=== PATIENT | female | born 1950 | race Two or more races ===

== ENCOUNTER 2017-04-19 10:09 | Emergency (ER) | payer MEDICAID, MEDICARE, OTHER ==
[~2017-04-19] VITALS: Ht 162.6 cm; Wt 74.8 kg
[2017-04-19 10:24] VITALS: BP 190/83
[2017-04-19] MEDS ORDERED: KETOROLAC TROMETH 60MG/2ML VIAL IM ONE (12:15)
== END 2017-04-19 13:34 | disposition home or self-care (01) ==
LOC: ER 10:09
DX: S16.1XXA Strain of muscle, fascia and tendon at neck level, initial encounter (principal); S39.012A Strain of muscle, fascia and tendon of lower back, initial encounter; E11.9 Type 2 diabetes mellitus without complications; V43.52XA Car driver injured in collision with other type car in traffic accident, initial encounter; Y93.89 Activity, other specified; Y99.8 Other external cause status; Y92.488 Other paved roadways as the place of occurrence of the external cause
CPT/HCPCS: 72040; 72100; 96372; 99284; J1885

== ENCOUNTER 2017-04-20 09:19 | Emergency (ER) | payer OTHER ==
[~2017-04-20] VITALS: Ht 162.6 cm; Wt 77.1 kg
[2017-04-20 09:29] VITALS: BP 157/74
== END 2017-04-20 11:52 | disposition home or self-care (01) ==
LOC: ER 09:19
DX: M48.06 Spinal stenosis, lumbar region (principal); E11.9 Type 2 diabetes mellitus without complications; V48.5XXD Car driver injured in noncollision transport accident in traffic accident, subsequent encounter
CPT/HCPCS: 72131

== ENCOUNTER 2018-03-17 21:33 | Emergency (ER) | payer OTHER ==
[~2018-03-17] VITALS: Ht 162.6 cm; Wt 73.9 kg
[~2018-03-17 21:33] MED LIST: ALL300T GT; ATOR20TA50 PO; BUPR200T PO; FER325T PO; GABA100C9 PO; IBUP800T24 PO; LEV50T PO; LOSA50TA6 PO; METF-370 PO; METH2.5T3 PO; OMEP20TA PO; PERCOT PO; PRE5T PO; TEMA30CA PO; TRAM50TA2 PO; TRAZ100T2 PO; [UNRECOGNIZED DRUG - CODE] PO
[2018-03-17 22:27] LABS: Basophils # (auto) 0 uL; Basophils % (auto) 0.5 % (0.0-2.0); Eosinophils # (auto) 0 uL; Hematocrit 34.3 % (36.0-46.0); Lymphocytes # (auto) 0.5 uL; Lymphocytes % (auto) 6.3 % (10.0-50.0); Mean Corpuscular Hemoglobin 30.7 pg (28.0-32.0); Mean Corpuscular Hgb Conc. 32.2 g/dL (32.0-36.0); Mean Corpuscular Volume 95.6 fL (80.0-100.0); Monocytes # (auto) 0.3 uL; Monocytes % (auto) 4.4 % (0.0-12.0); Neutrophils # (auto) 6.5 uL; Neutrophils % (auto) 88.8 % (37.0-80.0); Platelet Count (auto) 221 10^3/uL (140-450); Red Blood Cells 3.58 10^6/uL (4.0-5.20); Red Cell Distribution Width 17.2 % (11.8-14.3); White Blood Cell 7.3 10^3/uL (4.4-10.8)
[2018-03-17 22:41] LABS: Albumin 2.4 g/dL (3.4-5.0); BUN/Creatinine Ratio 8.5; Calcium 7.5 mg/dL (8.5-10.1); Magnesium 1.7 mg/dL (1.6-2.6); Potassium 3.8 mmol/L (3.5-5.1)
[2018-03-17 22:46] LABS: Bilirubin, Total 0.5 mg/dL (0.2-1.0); Total Protein 6.5 g/dL (6.4-8.2)
[2018-03-18] MEDS ORDERED: LORazepam 2MG/ML-1ML VIAL IV ONE (00:30)
[2018-03-18] MEDS ORDERED: SODIUM CHLORIDE 0.9% 1,000 ML IV ONE (01:00)
[2018-03-18] MEDS ORDERED: traZODone HCL 50 MG TAB PO ONE (02:30)
[2018-03-18 02:54] LABS: Urine Bacteria FEW /hpf (None Seen); Urine Blood 1+ /uL (Negative); Urine Hyaline Cast FEW /lpf (0 - 2); Urine Mucus FEW (None Seen); Urine Specific Gravity 1.014 (1.001-1.035); Urine WBC 49 /hpf (0 - 5)
[2018-03-18 03:24] VITALS: BP 139/62
[2018-03-18] MEDS ORDERED: CEFTRIAXONE SODIUM 2 GM in D5W 5% 50 ML IV ONE (03:45)
[2018-03-18] MEDS ORDERED: cefTRIAXone 1GM/10ml IVPUSH 20 ML IV ONE (03:49)
== END 2018-03-18 04:46 | disposition home or self-care (01) ==
LOC: ER 21:33 → EDBD 21:33 → ER 03-18 04:44
DX: N39.0 Urinary tract infection, site not specified (principal); R53.1 Weakness; E11.22 Type 2 diabetes mellitus with diabetic chronic kidney disease; I13.0 Hypertensive heart and chronic kidney disease with heart failure and stage 1 through stage 4 chronic kidney disease, or unspecified chronic kidney disease; N18.9 Chronic kidney disease, unspecified; E66.9 Obesity, unspecified; Z79.4 Long term (current) use of insulin; Z68.28 Body mass index [BMI] 28.0-28.9, adult
CPT/HCPCS: 36415; 71045; 80053; 81001; 83605; 83735; 83880; 84484; 85025; 87040; 93005; 96374; 99285; J0696; J7030; J7060

== ENCOUNTER 2020-08-07 12:31 | Inpatient (IN) | payer OTHER ==
[~2020-08-07] VITALS: Ht 165.1 cm; Wt 89.4 kg
[~2020-08-07 12:31] MED LIST changes: +LOSA-69 PO; -LOSA50TA6 PO; +METH2.5T PO; -METH2.5T3 PO; -TRAZ100T2 PO; +TRAZ100T3 PO
[2020-08-07 16:41] LABS: Basophils # (auto) 0 10 ^3/uL (0-0.2); Basophils % (auto) 0.1 % (0.0-2.0); Eosinophils # (auto) 0 10 ^3/uL (0-0.8); Hematocrit 43.9 % (36.0-46.0); Hemoglobin 14.1 g/dL (12.2-16.2); Lymphocytes # (auto) 0.5 10 ^3/uL (0.4-5.4); Lymphocytes % (auto) 3.3 % (10.0-50.0); Mean Corpuscular Hemoglobin 30.5 pg (28.0-32.0); Mean Corpuscular Volume 95.1 fL (80.0-100.0); Monocytes # (auto) 0.2 10 ^3/uL (0-1.3); Monocytes % (auto) 1.2 % (0.0-12.0); Neutrophils # (auto) 13.9 10 ^3/uL (1.6-8.6); Neutrophils % (auto) 95.4 % (37.0-80.0); Platelet Count (auto) 294 10^3/uL (140-450); Red Blood Cells 4.61 10^6/uL (4.0-5.20); Red Cell Distribution Width 17.4 % (11.8-14.3); White Blood Cell 14.6 10^3/uL (4.4-10.8)
[2020-08-07 16:58] LABS: Albumin 2.1 g/dL (3.4-5.0); Calcium 6.6 mg/dL (8.5-10.1); Potassium 3.4 mmol/L (3.5-5.1)
[2020-08-07 17:02] LABS: Lactic Acid w/Reflex 4.3 mmol/L (0.4-2.0)
[2020-08-07 17:05] LABS: BUN/Creatinine Ratio 19.5; Bilirubin, Total 0.4 mg/dL (0.2-1.0); Total Protein 5.6 g/dL (6.4-8.2)
[2020-08-07] MEDS ORDERED: SODIUM CHLORIDE 0.9% 1,000 ML IV ONE (18:45)
[2020-08-07] MEDS ORDERED: DexAMETHasone SOD PHOS 10MG/1ML VIAL INJ IV ONE (18:45)
[2020-08-07] MEDS ORDERED: DOXYCYCLINE 100MG/250ML 250 ML IV ONE (18:45)
[2020-08-07] MEDS ORDERED: AZITHROMYCIN 500MG/ 250ML 250 ML IV ONE (19:00)
[2020-08-08] MEDS ORDERED: ACETAMINOPHEN 500 MG TAB PO PRN (01:45)
[2020-08-08] MEDS ORDERED: POTASSIUM CHL 20MEQ/100ML 100 ML IV ONE (01:45)
[2020-08-08] MEDS ORDERED: DEXTROSE (50%) 50ML SYRG IV PRN (01:45)
[2020-08-08] MEDS ORDERED: CALCIUM GLUC 4.65meq/50ml D5AE 50 ML IV ONE (01:45)
[2020-08-08] MEDS ORDERED: DOCUSATE SOD 100 MG CAP PO PRN (01:45)
[2020-08-08] MEDS ORDERED: NITROGLYCERIN 0.4 MG SL TAB SL PRN (01:45)
[2020-08-08] MEDS ORDERED: ALBUTEROL SULF HFA 90MCG INH 200DOSE IN PRN (01:45)
[2020-08-08] MEDS ORDERED: ONDANSETRON HCL 4 MG/2 ML VIAL IV PRN (01:45)
[2020-08-08] MEDS ORDERED: MORPHINE SULF INJ 2 MG/ML SYRINGE 1ML IV PRN (01:45)
[2020-08-08] MEDS: ACCU-CHEK COMFORT CURVE STRIP VI SCH ×4 (06:21→21:56)
[2020-08-08] MEDS: SODIUM CHLOR 0.9% PF (SALINE LOCK) 10ML VIAL/SYR IV SCH ×3 (06:21→21:45)
[2020-08-08] MEDS: InsuLIN REG 1unit/0.01ml Soln (100units/ml) SC SCH ×4 (06:31→21:46)
[2020-08-08] MEDS: LACTATED RINGER'S 1,000 ML IV SCH ×2 (08:00→18:22)
[2020-08-08] MEDS: HYDROcodone-ACET 5/325MG TAB PO PRN ×2 (08:43→12:02)
[2020-08-08 09:56] LABS: Basophils # (auto) 0 10 ^3/uL (0-0.2); Basophils % (auto) 0.2 % (0.0-2.0); Eosinophils # (auto) 0 10 ^3/uL (0-0.8); Hematocrit 43.5 % (36.0-46.0); Lymphocytes # (auto) 0.2 10 ^3/uL (0.4-5.4); Lymphocytes % (auto) 1.4 % (10.0-50.0); Mean Corpuscular Hemoglobin 30.5 pg (28.0-32.0); Mean Corpuscular Hgb Conc. 32.2 g/dL (32.0-36.0); Mean Corpuscular Volume 94.7 fL (80.0-100.0); Monocytes # (auto) 0.3 10 ^3/uL (0-1.3); Monocytes % (auto) 2.1 % (0.0-12.0); Neutrophils # (auto) 13.3 10 ^3/uL (1.6-8.6); Neutrophils % (auto) 96.3 % (37.0-80.0); Platelet Count (auto) 282 10^3/uL (140-450); Red Blood Cells 4.59 10^6/uL (4.0-5.20); Red Cell Distribution Width 17.5 % (11.8-14.3); White Blood Cell 13.8 10^3/uL (4.4-10.8)
[2020-08-08] MEDS: DOXYCYCLINE 100MG/250ML 250 ML IV SCH ×2 (10:00→21:45)
[2020-08-08] MEDS: DexAMETHasone SOD PHOS 10MG/1ML VIAL INJ IV SCH (10:00)
[2020-08-08] MEDS: MULTIPLE VITAMIN TAB PO SCH (10:00)
[2020-08-08] MEDS: ZINC SULFATE 220mg CAP or TAB PO SCH (10:00)
[2020-08-08] MEDS: ASCORBIC ACID 1,000 MG TAB PO SCH (10:00)
[2020-08-08] MEDS: BUDESONIDE (INHALATION) 180 MCG IH IN SCH ×2 (10:00→22:00)
[2020-08-08] MEDS ORDERED: FAMOTIDINE (10MG/ML) 2ML VL IV SCH (10:00)
[2020-08-08] MEDS: FAMOTIDINE (10MG/ML) 2ML VL IV SCH (10:00)
[2020-08-08] MEDS ORDERED: HEPARIN SODIUM (PORCINE) 5000 UNITS/ML 1ML VIAL SC SCH (10:00)
[2020-08-08 10:13] LABS: Albumin 2.2 g/dL (3.4-5.0); Calcium 7.2 mg/dL (8.5-10.1); Magnesium 2.4 mg/dL (1.6-2.6); Potassium 4.7 mmol/L (3.5-5.1)
[2020-08-08 10:17] LABS: BUN/Creatinine Ratio 18.4; Bilirubin, Total 0.4 mg/dL (0.2-1.0); Total Protein 6.7 g/dL (6.4-8.2)
[2020-08-08] MEDS: CHOLECALCIFEROL (VITD3) 2,000 UNIT CAP PO SCH (11:28)
[2020-08-08] MEDS: HEPARIN SODIUM (PORCINE) 5000 UNITS/ML 1ML VIAL SC SCH ×2 (11:29→21:46)
[2020-08-08] MEDS ORDERED: FUROSEMIDE 100 MG/10ML VIAL IV ONE (13:30)
[2020-08-08 14:50] VITALS: BP 152/47
[2020-08-08] MEDS ORDERED: INSULIN LANTUS (GLARGINE) 1 /0.01ml (100units/ml) SC ONE (15:15)
[2020-08-08] MEDS ORDERED: LORazepam 2MG/ML-1ML VIAL ONE (16:57)
[2020-08-08 18:10] VITALS: BP 103/54
[2020-08-08] MEDS: LORazepam 2MG/ML-1ML VIAL IV PRN ×2 (18:32→22:48)
[2020-08-08] MEDS: INSULIN LANTUS (GLARGINE) 1 /0.01ml (100units/ml) SC SCH (21:46)
[2020-08-09 03:03] VITALS: BP 132/109
[2020-08-09] MEDS: LACTATED RINGER'S 1,000 ML IV SCH ×3 (03:12→23:15)
[2020-08-09 05:13] LABS: Basophils # (auto) 0.1 10 ^3/uL (0-0.2); Basophils % (auto) 0.4 % (0.0-2.0); Eosinophils # (auto) 0 10 ^3/uL (0-0.8); Hematocrit 41.5 % (36.0-46.0); Hemoglobin 13.4 g/dL (12.2-16.2); Lymphocytes # (auto) 0.5 10 ^3/uL (0.4-5.4); Lymphocytes % (auto) 2.9 % (10.0-50.0); Mean Corpuscular Hemoglobin 30.6 pg (28.0-32.0); Mean Corpuscular Hgb Conc. 32.2 g/dL (32.0-36.0); Monocytes # (auto) 0.7 10 ^3/uL (0-1.3); Monocytes % (auto) 4.1 % (0.0-12.0); Neutrophils # (auto) 16.1 10 ^3/uL (1.6-8.6); Neutrophils % (auto) 92.6 % (37.0-80.0); Nucleated Red Blood Cells % 0.1 %; Platelet Count (auto) 286 10^3/uL (140-450); Red Blood Cells 4.37 10^6/uL (4.0-5.20); Red Cell Distribution Width 17.6 % (11.8-14.3); White Blood Cell 17.4 10^3/uL (4.4-10.8)
[2020-08-09] MEDS: SODIUM CHLOR 0.9% PF (SALINE LOCK) 10ML VIAL/SYR IV SCH ×3 (05:31→22:00)
[2020-08-09 05:35] LABS: Albumin 2.2 g/dL (3.4-5.0); Calcium 7.2 mg/dL (8.5-10.1)
[2020-08-09 05:39] LABS: BUN/Creatinine Ratio 28.6; Bilirubin, Total 0.6 mg/dL (0.2-1.0); Total Protein 6.6 g/dL (6.4-8.2)
[2020-08-09] MEDS: ACCU-CHEK COMFORT CURVE STRIP VI SCH ×4 (06:07→22:00)
[2020-08-09] MEDS: InsuLIN REG 1unit/0.01ml Soln (100units/ml) SC SCH ×4 (06:13→22:00)
[2020-08-09 06:23] VITALS: BP 101/44
[2020-08-09] MEDS: BUDESONIDE (INHALATION) 180 MCG IH IN SCH (06:23)
[2020-08-09] MEDS ORDERED: HALOPERIDOL LACTATE 5 MG/ML INJ VIAL IM PRN (08:45)
[2020-08-09] MEDS ORDERED: HALOPERIDOL LACTATE 5 MG/ML INJ VIAL ONE (08:46)
[2020-08-09] MEDS: ZINC SULFATE 220mg CAP or TAB PO SCH (09:37)
[2020-08-09] MEDS: ASCORBIC ACID 1,000 MG TAB PO SCH (09:38)
[2020-08-09] MEDS: CHOLECALCIFEROL (VITD3) 2,000 UNIT CAP PO SCH (09:38)
[2020-08-09] MEDS: MULTIPLE VITAMIN TAB PO SCH (09:38)
[2020-08-09] MEDS: FAMOTIDINE (10MG/ML) 2ML VL IV SCH (10:02)
[2020-08-09] MEDS: DexAMETHasone SOD PHOS 10MG/1ML VIAL INJ IV SCH (10:02)
[2020-08-09] MEDS: HEPARIN SODIUM (PORCINE) 5000 UNITS/ML 1ML VIAL SC SCH ×2 (10:03→22:00)
[2020-08-09] MEDS: DOXYCYCLINE 100MG/250ML 250 ML IV SCH ×2 (10:03→22:00)
[2020-08-09] MEDS ORDERED: SUCCINYLCHOLINE CHLORIDE 20 MG/ML 10ML VIAL IV ONE (11:32)
[2020-08-09] MEDS ORDERED: ETOMIDATE (2MG/ML) 20ML VIAL IV ONE (11:32)
[2020-08-09] MEDS ORDERED: MIDAZOLAM DRIP 50 mg/50mL 50 ML IV ONE (11:33)
[2020-08-09 12:15] VITALS: BP 150/100
[2020-08-09] MEDS ORDERED: PROPOFOL 100 ML IV ONE (13:42)
[2020-08-09] MEDS: PROPOFOL 100 ML IV SCH (16:00)
[2020-08-09] MEDS: MIDAZOLAM DRIP 50 mg/50mL 50 ML IV SCH (17:01)
[2020-08-09 18:20] VITALS: BP 151/73
[2020-08-09] MEDS: INSULIN LANTUS (GLARGINE) 1 /0.01ml (100units/ml) SC SCH (22:00)
[2020-08-09] MEDS: BUDESONIDE (INHALATION) 0.5 MG/2 ML NEB NEB SCH (22:00)
[2020-08-09] MEDS ORDERED: DOPamine 1600MCG/ML D5W 250 ML IV ONE (22:16)
[2020-08-09 22:20] LABS: INR 1.12 (0.9-1.15); Partial Thromboplastin Time 31.4 sec (23.0-31.2)
[2020-08-09] MEDS: NOREPINEPHRINE 8 MG/250ML KIT 250 ML IV SCH (22:35)
[2020-08-09] MEDS ORDERED: NOREPINEPHRINE 8 MG/250ML KIT 250 ML IV ONE (22:40)
[2020-08-10 00:30] VITALS: BP 106/56
[2020-08-10] MEDS: SODIUM CHLOR 0.9% PF (SALINE LOCK) 10ML VIAL/SYR IV SCH ×3 (06:00→22:13)
[2020-08-10 07:33] VITALS: BP 96/52
[2020-08-10] MEDS: ACCU-CHEK COMFORT CURVE STRIP VI SCH ×4 (08:04→22:12)
[2020-08-10] MEDS: InsuLIN REG 1unit/0.01ml Soln (100units/ml) SC SCH ×4 (08:22→22:13)
[2020-08-10] MEDS: LACTATED RINGER'S 1,000 ML IV SCH ×2 (08:59→19:15)
[2020-08-10 09:14] LABS: Basophils # (auto) 0 10 ^3/uL (0-0.2); Basophils % (auto) 0.1 % (0.0-2.0); Eosinophils # (auto) 0 10 ^3/uL (0-0.8); Hematocrit 39.3 % (36.0-46.0); Hemoglobin 12.8 g/dL (12.2-16.2); Lymphocytes # (auto) 0.4 10 ^3/uL (0.4-5.4); Mean Corpuscular Hemoglobin 30.6 pg (28.0-32.0); Mean Corpuscular Hgb Conc. 32.5 g/dL (32.0-36.0); Mean Corpuscular Volume 94.3 fL (80.0-100.0); Monocytes # (auto) 1.2 10 ^3/uL (0-1.3); Monocytes % (auto) 6.7 % (0.0-12.0); Neutrophils # (auto) 16.2 10 ^3/uL (1.6-8.6); Neutrophils % (auto) 91.2 % (37.0-80.0); Nucleated Red Blood Cells % 0.8 %; Platelet Count (auto) 310 10^3/uL (140-450); Red Blood Cells 4.17 10^6/uL (4.0-5.20); Red Cell Distribution Width 17.8 % (11.8-14.3); White Blood Cell 17.8 10^3/uL (4.4-10.8)
[2020-08-10 09:26] LABS: Calcium 6.6 mg/dL (8.5-10.1); Potassium 4.8 mmol/L (3.5-5.1)
[2020-08-10] MEDS: DexAMETHasone SOD PHOS 10MG/1ML VIAL INJ IV SCH (09:30)
[2020-08-10 09:31] LABS: BUN/Creatinine Ratio 25.5; Bilirubin, Total 0.6 mg/dL (0.2-1.0); Magnesium 2.4 mg/dL (1.6-2.6); Total Protein 6.5 g/dL (6.4-8.2)
[2020-08-10] MEDS: ZINC SULFATE 220mg CAP or TAB PO SCH (09:31)
[2020-08-10] MEDS: FAMOTIDINE (10MG/ML) 2ML VL IV SCH (09:31)
[2020-08-10] MEDS: ASCORBIC ACID 1,000 MG TAB PO SCH (09:31)
[2020-08-10] MEDS: MULTIPLE VITAMIN TAB PO SCH (09:31)
[2020-08-10] MEDS: DOXYCYCLINE 100MG/250ML 250 ML IV SCH ×2 (09:31→22:31)
[2020-08-10] MEDS: CHOLECALCIFEROL (VITD3) 2,000 UNIT CAP PO SCH (09:32)
[2020-08-10] MEDS: BUDESONIDE (INHALATION) 0.5 MG/2 ML NEB NEB SCH ×2 (10:00→18:46)
[2020-08-10] MEDS: HEPARIN SODIUM (PORCINE) 5000 UNITS/ML 1ML VIAL SC SCH ×2 (10:00→22:31)
[2020-08-10 13:25] VITALS: BP 102/61
[2020-08-10] MEDS: PROPOFOL 100 ML IV SCH (17:03)
[2020-08-10] MEDS: MIDAZOLAM DRIP 50 mg/50mL 50 ML IV SCH (17:04)
[2020-08-10 18:46] VITALS: BP 130/63
[2020-08-10] MEDS: ALBUTEROL SULF 2.5 MG/0.5ML(0.5%) NEB SOLN NEB PRN (21:18)
[2020-08-10] MEDS: INSULIN LANTUS (GLARGINE) 1 /0.01ml (100units/ml) SC SCH (22:12)
[2020-08-11] MEDS: NOREPINEPHRINE 8 MG/250ML KIT 250 ML IV SCH (00:04)
[2020-08-11 00:20] VITALS: BP 130/72
[2020-08-11 04:19] LABS: Basophils # (auto) 0 10 ^3/uL (0-0.2); Basophils % (auto) 0.1 % (0.0-2.0); Eosinophils # (auto) 0 10 ^3/uL (0-0.8); Hematocrit 39.9 % (36.0-46.0); Hemoglobin 12.9 g/dL (12.2-16.2); Lymphocytes # (auto) 0.3 10 ^3/uL (0.4-5.4); Lymphocytes % (auto) 1.9 % (10.0-50.0); Mean Corpuscular Hgb Conc. 32.3 g/dL (32.0-36.0); Mean Corpuscular Volume 95.9 fL (80.0-100.0); Monocytes # (auto) 1.5 10 ^3/uL (0-1.3); Monocytes % (auto) 8.1 % (0.0-12.0); Neutrophils # (auto) 16.3 10 ^3/uL (1.6-8.6); Neutrophils % (auto) 89.9 % (37.0-80.0); Nucleated Red Blood Cells % 0.6 %; Platelet Count (auto) 250 10^3/uL (140-450); Red Blood Cells 4.17 10^6/uL (4.0-5.20); Red Cell Distribution Width 17.9 % (11.8-14.3); White Blood Cell 18.1 10^3/uL (4.4-10.8)
[2020-08-11 04:34] LABS: Calcium 6.7 mg/dL (8.5-10.1); Potassium 4.7 mmol/L (3.5-5.1)
[2020-08-11 04:39] LABS: BUN/Creatinine Ratio 30.9; Bilirubin, Total 0.6 mg/dL (0.2-1.0); Magnesium 2.2 mg/dL (1.6-2.6); Total Protein 6.2 g/dL (6.4-8.2)
[2020-08-11] MEDS: LACTATED RINGER'S 1,000 ML IV SCH ×2 (05:36→15:32)
[2020-08-11 06:25] VITALS: BP 104/56
[2020-08-11] MEDS: ALBUTEROL SULF 2.5 MG/0.5ML(0.5%) NEB SOLN NEB PRN ×2 (06:25→22:43)
[2020-08-11] MEDS: BUDESONIDE (INHALATION) 0.5 MG/2 ML NEB NEB SCH ×2 (06:25→20:03)
[2020-08-11] MEDS: SODIUM CHLOR 0.9% PF (SALINE LOCK) 10ML VIAL/SYR IV SCH ×3 (06:40→22:36)
[2020-08-11] MEDS: ACCU-CHEK COMFORT CURVE STRIP VI SCH ×3 (06:42→17:34)
[2020-08-11] MEDS: InsuLIN REG 1unit/0.01ml Soln (100units/ml) SC SCH ×3 (07:02→17:33)
[2020-08-11 10:15] VITALS: BP 112/62
[2020-08-11] MEDS: CHOLECALCIFEROL (VITD3) 2,000 UNIT CAP PO SCH (10:45)
[2020-08-11] MEDS: MULTIPLE VITAMIN TAB PO SCH (10:45)
[2020-08-11] MEDS: HEPARIN SODIUM (PORCINE) 5000 UNITS/ML 1ML VIAL SC SCH ×2 (10:45→22:37)
[2020-08-11] MEDS: ASCORBIC ACID 1,000 MG TAB PO SCH (10:45)
[2020-08-11] MEDS: DOXYCYCLINE 100MG/250ML 250 ML IV SCH ×2 (10:45→22:37)
[2020-08-11] MEDS: ZINC SULFATE 220mg CAP or TAB PO SCH (10:45)
[2020-08-11] MEDS: DexAMETHasone SOD PHOS 10MG/1ML VIAL INJ IV SCH (10:45)
[2020-08-11] MEDS: FAMOTIDINE (10MG/ML) 2ML VL IV SCH (11:32)
[2020-08-11 13:34] VITALS: BP 123/55
[2020-08-11 15:11] LABS: Creatinine, Urine 106 mg/dL (30.0-125.0); Sodium Urine 16 mmol/L (40-220)
[2020-08-11] MEDS: PROPOFOL 100 ML IV SCH (15:45)
[2020-08-11] MEDS: MIDAZOLAM DRIP 50 mg/50mL 50 ML IV SCH (15:46)
[2020-08-11] MEDS ORDERED: INSULIN LANTUS (GLARGINE) 1 /0.01ml (100units/ml) SC ONE (18:30)
[2020-08-11] MEDS ORDERED: TPN PER PHARMACY 0 ML IV SCH (18:30)
[2020-08-11 19:16] VITALS: BP 105/54
[2020-08-11] MEDS: AMINO ACID INFUSION IN D10W 1,000 ML IV NR (20:40)
[2020-08-11] MEDS ORDERED: InsuLIN REG 1unit/0.01ml Soln (100units/ml) SC ONE (22:15)
[2020-08-11] MEDS ORDERED: DEXTROSE (50%) 50ML SYRG IV PRN (22:15)
[2020-08-11] MEDS: DOPamine 1600MCG/ML D5W 250 ML IV SCH (22:45)
[2020-08-11 23:39] VITALS: BP 99/62
[2020-08-12] MEDS ORDERED: InsuLIN REG 1unit/0.01ml Soln (100units/ml) SC SCH
[2020-08-12] MEDS ORDERED: ACCU-CHEK COMFORT CURVE STRIP VI SCH
[2020-08-12] MEDS ORDERED: DEXTROSE (50%) 50ML SYRG IV SCH
[2020-08-12] MEDS: ACCU-CHEK COMFORT CURVE STRIP VI SCH ×7 (00:30→23:48)
[2020-08-12] MEDS: InsuLIN REG 1unit/0.01ml Soln (100units/ml) SC SCH ×7 (00:31→23:48)
[2020-08-12] MEDS: LACTATED RINGER'S 1,000 ML IV SCH ×3 (01:15→21:15)
[2020-08-12 03:13] VITALS: BP 99/52
[2020-08-12 04:44] LABS: Basophils # (auto) 0 10 ^3/uL (0-0.2); Basophils % (auto) 0.3 % (0.0-2.0); Eosinophils # (auto) 0 10 ^3/uL (0-0.8); Hematocrit 37.9 % (36.0-46.0); Hemoglobin 12.2 g/dL (12.2-16.2); Lymphocytes # (auto) 0.2 10 ^3/uL (0.4-5.4); Lymphocytes % (auto) 1.5 % (10.0-50.0); Mean Corpuscular Hemoglobin 30.8 pg (28.0-32.0); Mean Corpuscular Hgb Conc. 32.3 g/dL (32.0-36.0); Mean Corpuscular Volume 95.5 fL (80.0-100.0); Monocytes # (auto) 0.6 10 ^3/uL (0-1.3); Monocytes % (auto) 4.8 % (0.0-12.0); Neutrophils # (auto) 12.2 10 ^3/uL (1.6-8.6); Neutrophils % (auto) 93.4 % (37.0-80.0); Nucleated Red Blood Cells % 0.5 %; Platelet Count (auto) 200 10^3/uL (140-450); Red Blood Cells 3.97 10^6/uL (4.0-5.20); Red Cell Distribution Width 17.5 % (11.8-14.3); White Blood Cell 13.1 10^3/uL (4.4-10.8)
[2020-08-12 05:09] LABS: Potassium 4.4 mmol/L (3.5-5.1)
[2020-08-12 05:24] LABS: Albumin 1.9 g/dL (3.4-5.0); BUN/Creatinine Ratio 35.4; Bilirubin, Total 0.4 mg/dL (0.2-1.0); CRP High Sensitivity 5.76 mg/dL (< 0.3); Calcium 6.6 mg/dL (8.5-10.1); Magnesium 2.2 mg/dL (1.6-2.6); Pre Albumin 13.3 mg/dL (20.0-40.0)
[2020-08-12 05:40] LABS: Phosphorus 3.1 mg/dL (2.5-4.90)
[2020-08-12] MEDS: SODIUM CHLOR 0.9% PF (SALINE LOCK) 10ML VIAL/SYR IV SCH ×3 (06:16→22:00)
[2020-08-12 06:34] VITALS: BP 101/52
[2020-08-12] MEDS: BUDESONIDE (INHALATION) 0.5 MG/2 ML NEB NEB SCH ×2 (06:34→19:02)
[2020-08-12] MEDS: ALBUTEROL SULF 2.5 MG/0.5ML(0.5%) NEB SOLN NEB PRN ×2 (07:20→19:02)
[2020-08-12] MEDS: MULTIPLE VITAMIN TAB PO SCH (10:00)
[2020-08-12] MEDS: ZINC SULFATE 220mg CAP or TAB PO SCH (10:00)
[2020-08-12] MEDS ORDERED: INSULIN LANTUS (GLARGINE) 1 /0.01ml (100units/ml) SC SCH (10:00)
[2020-08-12] MEDS: CHOLECALCIFEROL (VITD3) 2,000 UNIT CAP PO SCH (10:00)
[2020-08-12] MEDS: ASCORBIC ACID 1,000 MG TAB PO SCH (10:00)
[2020-08-12] MEDS: FAMOTIDINE (10MG/ML) 2ML VL IV SCH (10:10)
[2020-08-12] MEDS: DexAMETHasone SOD PHOS 10MG/1ML VIAL INJ IV SCH (10:10)
[2020-08-12] MEDS: DOXYCYCLINE 100MG/250ML 250 ML IV SCH ×2 (10:10→22:00)
[2020-08-12] MEDS: HEPARIN SODIUM (PORCINE) 5000 UNITS/ML 1ML VIAL SC SCH ×2 (10:11→22:00)
[2020-08-12 10:21] VITALS: BP 112/56
[2020-08-12] MEDS ORDERED: INSULIN LANTUS (GLARGINE) 1 /0.01ml (100units/ml) SC ONE (11:15)
[2020-08-12] MEDS: DOPamine 1600MCG/ML D5W 250 ML IV SCH (14:35)
[2020-08-12] MEDS: PROPOFOL 100 ML IV SCH (15:13)
[2020-08-12] MEDS: MIDAZOLAM DRIP 50 mg/50mL 50 ML IV SCH (16:36)
[2020-08-12 18:54] VITALS: BP 110/58
[2020-08-12] MEDS: AMINO ACID INFUSION IN D10W 1,000 ML IV NR (19:49)
[2020-08-12] MEDS ORDERED: [UNRECOGNIZED DRUG - OTHER] IV NR ×7 (20:00)
[2020-08-12] MEDS ORDERED: SODIUM CHLORIDE IV NR ×7 (20:00)
[2020-08-12] MEDS ORDERED: SODIUM ACETATE IV NR ×7 (20:00)
[2020-08-12] MEDS ORDERED: CALCIUM GLUC IV NR ×7 (20:00)
[2020-08-12] MEDS: INSULIN LANTUS (GLARGINE) 1 /0.01ml (100units/ml) SC SCH (22:00)
[2020-08-13 02:59] VITALS: BP 114/60
[2020-08-13] MEDS: InsuLIN REG 1unit/0.01ml Soln (100units/ml) SC SCH ×5 (04:00→21:12)
[2020-08-13] MEDS: ACCU-CHEK COMFORT CURVE STRIP VI SCH ×5 (04:00→20:57)
[2020-08-13 05:12] LABS: Potassium 4.5 mmol/L (3.5-5.1)
[2020-08-13 05:24] LABS: Albumin 1.8 g/dL (3.4-5.0); BUN/Creatinine Ratio 40.5; Bilirubin, Total 0.4 mg/dL (0.2-1.0); Calcium 6.7 mg/dL (8.5-10.1); Magnesium 1.9 mg/dL (1.6-2.6); Phosphorus 2.6 mg/dL (2.5-4.90); Total Protein 5.9 g/dL (6.4-8.2)
[2020-08-13 05:50] LABS: Basophils # (auto) 0.1 10 ^3/uL (0-0.2); Basophils % (auto) 0.3 % (0.0-2.0); Eosinophils # (auto) 0 10 ^3/uL (0-0.8); Hematocrit 38.4 % (36.0-46.0); Lymphocytes # (auto) 0.2 10 ^3/uL (0.4-5.4); Lymphocytes % (auto) 0.9 % (10.0-50.0); Mean Corpuscular Hemoglobin 30.2 pg (28.0-32.0); Mean Corpuscular Hgb Conc. 31.3 g/dL (32.0-36.0); Mean Corpuscular Volume 96.6 fL (80.0-100.0); Monocytes # (auto) 1.4 10 ^3/uL (0-1.3); Monocytes % (auto) 6.1 % (0.0-12.0); Neutrophils # (auto) 21.3 10 ^3/uL (1.6-8.6); Neutrophils % (auto) 92.7 % (37.0-80.0); Nucleated Red Blood Cells % 0.3 %; Platelet Count (auto) 203 10^3/uL (140-450); Red Blood Cells 3.98 10^6/uL (4.0-5.20); Red Cell Distribution Width 17.5 % (11.8-14.3)
[2020-08-13] MEDS: SODIUM CHLOR 0.9% PF (SALINE LOCK) 10ML VIAL/SYR IV SCH ×3 (06:00→22:00)
[2020-08-13 06:25] VITALS: BP 113/50
[2020-08-13] MEDS: DOPamine 1600MCG/ML D5W 250 ML IV SCH ×2 (06:55→09:45)
[2020-08-13] MEDS: LACTATED RINGER'S 1,000 ML IV SCH (07:15)
[2020-08-13] MEDS: ZINC SULFATE 220mg CAP or TAB PO SCH (08:53)
[2020-08-13] MEDS: CHOLECALCIFEROL (VITD3) 2,000 UNIT CAP PO SCH (08:54)
[2020-08-13] MEDS: ASCORBIC ACID 1,000 MG TAB PO SCH (08:54)
[2020-08-13] MEDS: MULTIPLE VITAMIN TAB PO SCH (08:54)
[2020-08-13] MEDS: SODIUM BICARBONATE 50ML VIAL 75 ML in SOD CHL 0.45% 1,000 ML IV SCH ×2 (09:45→22:30)
[2020-08-13] MEDS: INSULIN LANTUS (GLARGINE) 1 /0.01ml (100units/ml) SC SCH (09:49)
[2020-08-13] MEDS: DexAMETHasone SOD PHOS 10MG/1ML VIAL INJ IV SCH (09:53)
[2020-08-13] MEDS: FAMOTIDINE (10MG/ML) 2ML VL IV SCH (09:53)
[2020-08-13] MEDS: HEPARIN SODIUM (PORCINE) 5000 UNITS/ML 1ML VIAL SC SCH (09:54)
[2020-08-13] MEDS: BUDESONIDE (INHALATION) 0.5 MG/2 ML NEB NEB SCH ×2 (10:00→19:50)
[2020-08-13] MEDS: PROPOFOL 100 ML IV SCH (16:00)
[2020-08-13] MEDS: MIDAZOLAM DRIP 50 mg/50mL 50 ML IV SCH (17:14)
[2020-08-13 19:07] VITALS: BP 104/60
[2020-08-13] MEDS ORDERED: PPN PER PHARMACY IV NR ×10 (20:00)
[2020-08-14] VITALS (13 sets, daily range): BP systolic 84–159; BP diastolic 50–101
[2020-08-14] MEDS: ACCU-CHEK COMFORT CURVE STRIP VI SCH ×6 (00:23→21:03)
[2020-08-14] MEDS: HEPARIN SODIUM (PORCINE) 5000 UNITS/ML 1ML VIAL SC SCH ×3 (00:27→22:00)
[2020-08-14] MEDS: InsuLIN REG 1unit/0.01ml Soln (100units/ml) SC SCH ×6 (00:28→21:05)
[2020-08-14] MEDS: INSULIN LANTUS (GLARGINE) 1 /0.01ml (100units/ml) SC SCH ×3 (00:28→22:00)
[2020-08-14] MEDS ORDERED: dilTIAZem 25 MG/5 ML VIAL IV ONE ×2 (02:38)
[2020-08-14] MEDS: SODIUM CHLOR 0.9% PF (SALINE LOCK) 10ML VIAL/SYR IV SCH ×2 (06:00→14:13)
[2020-08-14] MEDS: SODIUM BICARBONATE 50ML VIAL 75 ML in SOD CHL 0.45% 1,000 ML IV SCH (07:15)
[2020-08-14 07:18] LABS: Hemoglobin 11.9 g/dL (12.2-16.2)
[2020-08-14 07:22] LABS: Mean Corpuscular Hemoglobin 30.9 pg (28.0-32.0); Mean Corpuscular Hgb Conc. 33.1 g/dL (32.0-36.0); Mean Corpuscular Volume 93.3 fL (80.0-100.0); Platelet Count (auto) 175 10^3/uL (140-450); Red Blood Cells 3.86 10^6/uL (4.0-5.20); Red Cell Distribution Width 17.6 % (11.8-14.3)
[2020-08-14 07:45] LABS: Calcium 7.8 mg/dL (8.5-10.1); Potassium 4.5 mmol/L (3.5-5.1)
[2020-08-14 07:51] LABS: Albumin 1.5 g/dL (3.4-5.0); BUN/Creatinine Ratio 64.7; Bilirubin, Total 0.5 mg/dL (0.2-1.0); Magnesium 1.8 mg/dL (1.6-2.6); Total Protein 5.7 g/dL (6.4-8.2)
[2020-08-14] MEDS: CHOLECALCIFEROL (VITD3) 2,000 UNIT CAP PO SCH (08:17)
[2020-08-14] MEDS: MULTIPLE VITAMIN TAB PO SCH (08:17)
[2020-08-14] MEDS: ASCORBIC ACID 1,000 MG TAB PO SCH (08:17)
[2020-08-14] MEDS: ZINC SULFATE 220mg CAP or TAB PO SCH (08:17)
[2020-08-14 08:32] LABS: Basophils % (manual) 0 (0.0-2.0); Blast Cells 0; Eosinophils % (manual) 0 (0-7); Myelocytes % 0; Promyelocytes % 0; Reactive Lymphocytes 0
[2020-08-14] MEDS: FAMOTIDINE (10MG/ML) 2ML VL IV SCH (08:39)
[2020-08-14] MEDS: DexAMETHasone SOD PHOS 10MG/1ML VIAL INJ IV SCH (08:39)
[2020-08-14] MEDS: DOPamine 1600MCG/ML D5W 250 ML IV SCH (08:56)
[2020-08-14] MEDS: BUDESONIDE (INHALATION) 0.5 MG/2 ML NEB NEB SCH ×2 (10:00→22:19)
[2020-08-14 10:50] LABS: Band Neutrophils % (manual) 12; Lymphocytes % (manual) 1 (10.0-50.0); Metamyelocytes % 1; Monocytes % (manual) 3 (0-12)
[2020-08-14] MEDS: PROPOFOL 100 ML IV SCH (18:16)
[2020-08-14] MEDS: MIDAZOLAM DRIP 50 mg/50mL 50 ML IV SCH (22:00)
[2020-08-14] MEDS: ALBUTEROL SULF 2.5 MG/0.5ML(0.5%) NEB SOLN NEB PRN (22:20)
[2020-08-14] MEDS: PPN PER PHARMACY IV NR ×10 (23:00)
[2020-08-15] VITALS (93 sets, daily range): BP systolic 83–156; BP diastolic 38–74
[2020-08-15] MEDS: PROPOFOL 100 ML IV SCH ×3 (01:00→21:15)
[2020-08-15] MEDS ORDERED: MAGNESIUM SULFATE 1GM/100ML 100 ML IV PRN (01:00)
[2020-08-15] MEDS ORDERED: POTASSIUM CHL 20MEQ/100ML 100 ML IV PRN (01:00)
[2020-08-15] MEDS: SODIUM CHLOR 0.9% PF (SALINE LOCK) 10ML VIAL/SYR IV SCH ×4 (01:39→21:37)
[2020-08-15 02:03] LABS: Magnesium 1.8 mg/dL (1.6-2.6)
[2020-08-15] MEDS: InsuLIN REG 1unit/0.01ml Soln (100units/ml) SC SCH ×6 (04:00→20:00)
[2020-08-15] MEDS: ACCU-CHEK COMFORT CURVE STRIP VI SCH ×6 (04:00→20:00)
[2020-08-15 04:15] LABS: Albumin 1.4 g/dL (3.4-5.0); BUN/Creatinine Ratio 75.5; Bilirubin, Total 0.5 mg/dL (0.2-1.0); Calcium 7.9 mg/dL (8.5-10.1); Phosphorus 3.9 mg/dL (2.5-4.90); Total Protein 5.6 g/dL (6.4-8.2)
[2020-08-15] MEDS: BUDESONIDE (INHALATION) 0.5 MG/2 ML NEB NEB SCH ×2 (06:05→19:10)
[2020-08-15] MEDS: ALBUTEROL SULF 2.5 MG/0.5ML(0.5%) NEB SOLN NEB PRN ×2 (06:05→19:39)
[2020-08-15] MEDS: MIDAZOLAM DRIP 50 mg/50mL 50 ML IV SCH ×3 (06:55→21:00)
[2020-08-15] MEDS: PPN PER PHARMACY IV NR ×10 (07:33)
[2020-08-15] MEDS: DOPamine 1600MCG/ML D5W 250 ML IV SCH (08:32)
[2020-08-15] MEDS: ZINC SULFATE 220mg CAP or TAB PO SCH (09:12)
[2020-08-15] MEDS: MULTIPLE VITAMIN TAB PO SCH (09:13)
[2020-08-15] MEDS: ASCORBIC ACID 1,000 MG TAB PO SCH (09:13)
[2020-08-15] MEDS: CHOLECALCIFEROL (VITD3) 2,000 UNIT CAP PO SCH (09:13)
[2020-08-15] MEDS: FAMOTIDINE (10MG/ML) 2ML VL IV SCH (09:51)
[2020-08-15] MEDS: DexAMETHasone SOD PHOS 10MG/1ML VIAL INJ IV SCH (09:51)
[2020-08-15] MEDS: HEPARIN SODIUM (PORCINE) 5000 UNITS/ML 1ML VIAL SC SCH ×2 (09:52→22:00)
[2020-08-15] MEDS: INSULIN LANTUS (GLARGINE) 1 /0.01ml (100units/ml) SC SCH ×2 (10:00→22:00)
[2020-08-15] MEDS ORDERED: VANCOMYCIN PER PHARMACY 0 MG IV SCH (15:00)
[2020-08-15] MEDS ORDERED: ACETAMINOPHEN 650 MG RECT SUPP PR PRN (16:00)
[2020-08-15] MEDS ORDERED: VANCOMYCIN 1GM/250ML 250 ML IV ONE (16:00)
[2020-08-15] MEDS ORDERED: MEROPENEM 500MG IVPB 50 ML IV ONE (17:00)
[2020-08-15] MEDS ORDERED: PPN PER PHARMACY IV NR ×8 (20:00)
[2020-08-15] MEDS: MEROPENEM 1GM IVPB 100 ML IV SCH (23:40)
[2020-08-16] VITALS (97 sets, daily range): BP systolic 77–215; BP diastolic 31–90
[2020-08-16] MEDS: MIDAZOLAM DRIP 50 mg/50mL 50 ML IV SCH ×3 (01:00→12:03)
[2020-08-16] MEDS: PROPOFOL 100 ML IV SCH ×2 (01:00→05:00)
[2020-08-16 03:28] LABS: Hematocrit 34.5 % (36.0-46.0); Hemoglobin 11.1 g/dL (12.2-16.2); Mean Corpuscular Hemoglobin 30.3 pg (28.0-32.0); Mean Corpuscular Hgb Conc. 32.3 g/dL (32.0-36.0); Mean Corpuscular Volume 93.9 fL (80.0-100.0); Platelet Count (auto) 205 10^3/uL (140-450); Red Blood Cells 3.68 10^6/uL (4.0-5.20); Red Cell Distribution Width 17.7 % (11.8-14.3); White Blood Cell 18.9 10^3/uL (4.4-10.8)
[2020-08-16 03:37] LABS: Basophils % (manual) 0 (0.0-2.0); Blast Cells 0; Promyelocytes % 0; Reactive Lymphocytes 0
[2020-08-16 04:13] LABS: Albumin 1.2 g/dL (3.4-5.0); Calcium 7.5 mg/dL (8.5-10.1); Potassium 3.9 mmol/L (3.5-5.1)
[2020-08-16 04:15] LABS: BUN/Creatinine Ratio 75.9
[2020-08-16 04:17] LABS: Bilirubin, Total 0.5 mg/dL (0.2-1.0); Phosphorus 3.6 mg/dL (2.5-4.90); Total Protein 5.6 g/dL (6.4-8.2)
[2020-08-16 04:35] LABS: Band Neutrophils % (manual) 10; Eosinophils % (manual) 1 (0-7); Lymphocytes % (manual) 1 (10.0-50.0); Metamyelocytes % 5; Monocytes % (manual) 2 (0-12); Myelocytes % 5
[2020-08-16] MEDS: ACCU-CHEK COMFORT CURVE STRIP VI SCH ×6 (04:57→20:00)
[2020-08-16] MEDS: MEROPENEM 1GM IVPB 100 ML IV SCH ×3 (04:57→22:00)
[2020-08-16] MEDS: SODIUM CHLOR 0.9% PF (SALINE LOCK) 10ML VIAL/SYR IV SCH ×3 (04:58→23:43)
[2020-08-16] MEDS: InsuLIN REG 1unit/0.01ml Soln (100units/ml) SC SCH ×6 (05:02→20:00)
[2020-08-16] MEDS: ALBUTEROL SULF 2.5 MG/0.5ML(0.5%) NEB SOLN NEB PRN ×3 (06:01→22:50)
[2020-08-16] MEDS: BUDESONIDE (INHALATION) 0.5 MG/2 ML NEB NEB SCH ×2 (06:01→22:50)
[2020-08-16 08:20] LABS: INR 1.12 (0.9-1.15); Partial Thromboplastin Time 30.5 sec (23.0-31.2)
[2020-08-16] MEDS: DOPamine 1600MCG/ML D5W 250 ML IV SCH (08:46)
[2020-08-16] MEDS: DexAMETHasone SOD PHOS 10MG/1ML VIAL INJ IV SCH (09:46)
[2020-08-16] MEDS: FAMOTIDINE (10MG/ML) 2ML VL IV SCH (09:46)
[2020-08-16] MEDS: INSULIN LANTUS (GLARGINE) 1 /0.01ml (100units/ml) SC SCH ×2 (09:47→22:00)
[2020-08-16] MEDS: CHOLECALCIFEROL (VITD3) 2,000 UNIT CAP PO SCH (09:47)
[2020-08-16] MEDS: HEPARIN SODIUM (PORCINE) 5000 UNITS/ML 1ML VIAL SC SCH ×2 (09:47→22:00)
[2020-08-16] MEDS: ASCORBIC ACID 1,000 MG TAB PO SCH (09:47)
[2020-08-16] MEDS: ZINC SULFATE 220mg CAP or TAB PO SCH (09:48)
[2020-08-16] MEDS ORDERED: NOREPINEPHRINE 8 MG/250ML KIT 250 ML IV ONE (10:50)
[2020-08-16] MEDS: NOREPINEPHRINE 8 MG/250ML KIT 250 ML IV SCH (11:00)
[2020-08-16] MEDS: VANCOMYCIN 1GM/250ML 250 ML IV SCH (11:30)
[2020-08-16] MEDS ORDERED: VANCOMYCIN 1GM/250ML 250 ML IV SCH (18:00)
[2020-08-16] MEDS ORDERED: AMINO ACID INFUSION IN D10W 1,000 ML IV NR (20:00)
[2020-08-16] MEDS ORDERED: PPN PER PHARMACY IV NR ×10 (20:00)
[2020-08-16 22:26] LABS: Potassium 4.4 mmol/L (3.5-5.1)
[2020-08-16 22:29] LABS: Magnesium 2.2 mg/dL (1.6-2.6)
[2020-08-17] VITALS (98 sets, daily range): BP systolic 90–156; BP diastolic 47–89
[2020-08-17] MEDS: ACCU-CHEK COMFORT CURVE STRIP VI SCH ×6 (00:17→20:17)
[2020-08-17] MEDS: PROPOFOL 100 ML IV SCH ×2 (02:36→17:28)
[2020-08-17] MEDS: InsuLIN REG 1unit/0.01ml Soln (100units/ml) SC SCH ×6 (04:00→20:18)
[2020-08-17 05:42] LABS: Hematocrit 35.3 % (36.0-46.0); Hemoglobin 11.1 g/dL (12.2-16.2); Mean Corpuscular Hemoglobin 29.9 pg (28.0-32.0); Mean Corpuscular Hgb Conc. 31.4 g/dL (32.0-36.0); Mean Corpuscular Volume 95.1 fL (80.0-100.0); Platelet Count (auto) 285 10^3/uL (140-450); Red Blood Cells 3.72 10^6/uL (4.0-5.20); Red Cell Distribution Width 17.7 % (11.8-14.3); White Blood Cell 21.9 10^3/uL (4.4-10.8)
[2020-08-17 05:52] LABS: Basophils % (manual) 0 (0.0-2.0); Blast Cells 0; Eosinophils % (manual) 0 (0-7); Lymphocytes % (manual) 0 (10.0-50.0); Promyelocytes % 0; Reactive Lymphocytes 0
[2020-08-17] MEDS: SODIUM CHLOR 0.9% PF (SALINE LOCK) 10ML VIAL/SYR IV SCH ×3 (06:01→22:00)
[2020-08-17] MEDS: MIDAZOLAM DRIP 50 mg/50mL 50 ML IV SCH ×2 (06:01→23:00)
[2020-08-17] MEDS: VANCOMYCIN 1GM/250ML 250 ML IV SCH (06:01)
[2020-08-17] MEDS: MEROPENEM 1GM IVPB 100 ML IV SCH ×3 (06:03→22:00)
[2020-08-17 06:04] LABS: Potassium 4.4 mmol/L (3.5-5.1)
[2020-08-17] MEDS: BUDESONIDE (INHALATION) 0.5 MG/2 ML NEB NEB SCH ×2 (06:08→22:14)
[2020-08-17] MEDS: ALBUTEROL SULF 2.5 MG/0.5ML(0.5%) NEB SOLN NEB PRN ×2 (06:08→22:14)
[2020-08-17 06:09] LABS: Albumin 1.2 g/dL (3.4-5.0); Calcium 8.1 mg/dL (8.5-10.1); Magnesium 2.3 mg/dL (1.6-2.6)
[2020-08-17 06:12] LABS: Bilirubin, Total 0.5 mg/dL (0.2-1.0); Phosphorus 4.7 mg/dL (2.5-4.90); Total Protein 6.3 g/dL (6.4-8.2)
[2020-08-17 06:24] LABS: Band Neutrophils % (manual) 4; Metamyelocytes % 1; Monocytes % (manual) 3 (0-12); Myelocytes % 3
[2020-08-17] MEDS: NOREPINEPHRINE 8 MG/250ML KIT 250 ML IV SCH (08:19)
[2020-08-17] MEDS: ZINC SULFATE 220mg CAP or TAB PO SCH (10:00)
[2020-08-17] MEDS: ASCORBIC ACID 1,000 MG TAB PO SCH (10:00)
[2020-08-17] MEDS: CHOLECALCIFEROL (VITD3) 2,000 UNIT CAP PO SCH (10:00)
[2020-08-17] MEDS: MULTIPLE VITAMIN TAB PO SCH (10:18)
[2020-08-17] MEDS: FAMOTIDINE (10MG/ML) 2ML VL IV SCH (10:26)
[2020-08-17] MEDS: DOPamine 1600MCG/ML D5W 250 ML IV SCH (10:26)
[2020-08-17] MEDS: DexAMETHasone SOD PHOS 10MG/1ML VIAL INJ IV SCH (10:27)
[2020-08-17] MEDS: HEPARIN SODIUM (PORCINE) 5000 UNITS/ML 1ML VIAL SC SCH ×2 (10:30→22:00)
[2020-08-17] MEDS: INSULIN LANTUS (GLARGINE) 1 /0.01ml (100units/ml) SC SCH ×2 (10:33→22:00)
[2020-08-17] MEDS ORDERED: PPN PER PHARMACY IV NR ×10 (13:00)
[2020-08-17] MEDS ORDERED: TPN PER PHARMACY IV NR ×8 (20:00)
[2020-08-18] VITALS (97 sets, daily range): BP systolic 70–172; BP diastolic 34–80
[2020-08-18] MEDS: InsuLIN REG 1unit/0.01ml Soln (100units/ml) SC SCH ×6 (04:00→22:24)
[2020-08-18] MEDS: ACCU-CHEK COMFORT CURVE STRIP VI SCH ×6 (04:00→22:19)
[2020-08-18 04:20] LABS: Hematocrit 30.8 % (36.0-46.0); Hemoglobin 9.7 g/dL (12.2-16.2); Mean Corpuscular Hemoglobin 29.9 pg (28.0-32.0); Mean Corpuscular Hgb Conc. 31.3 g/dL (32.0-36.0); Mean Corpuscular Volume 95.4 fL (80.0-100.0); Platelet Count (auto) 274 10^3/uL (140-450); Red Blood Cells 3.23 10^6/uL (4.0-5.20); Red Cell Distribution Width 17.7 % (11.8-14.3); White Blood Cell 15.4 10^3/uL (4.4-10.8)
[2020-08-18 04:41] LABS: Potassium 4.3 mmol/L (3.5-5.1)
[2020-08-18 04:43] LABS: Band Neutrophils % (manual) 0; Basophils % (manual) 0 (0.0-2.0); Blast Cells 0; Metamyelocytes % 0; Promyelocytes % 0; Reactive Lymphocytes 0
[2020-08-18 04:47] LABS: Albumin 1.1 g/dL (3.4-5.0); BUN/Creatinine Ratio 70.8; Calcium 8.2 mg/dL (8.5-10.1); Magnesium 2.4 mg/dL (1.6-2.6)
[2020-08-18 04:50] LABS: Bilirubin, Total 0.3 mg/dL (0.2-1.0); Phosphorus 3.4 mg/dL (2.5-4.90); Total Protein 5.6 g/dL (6.4-8.2)
[2020-08-18 05:21] LABS: Eosinophils % (manual) 1 (0-7); Lymphocytes % (manual) 5 (10.0-50.0); Monocytes % (manual) 2 (0-12); Myelocytes % 1
[2020-08-18] MEDS: SODIUM CHLOR 0.9% PF (SALINE LOCK) 10ML VIAL/SYR IV SCH ×3 (06:19→22:20)
[2020-08-18] MEDS: MEROPENEM 1GM IVPB 100 ML IV SCH (06:19)
[2020-08-18] MEDS: PROPOFOL 100 ML IV SCH ×4 (06:50→23:15)
[2020-08-18] MEDS: ALBUTEROL SULF 2.5 MG/0.5ML(0.5%) NEB SOLN NEB PRN (07:10)
[2020-08-18] MEDS: BUDESONIDE (INHALATION) 0.5 MG/2 ML NEB NEB SCH ×2 (07:10→22:00)
[2020-08-18] MEDS: DexAMETHasone SOD PHOS 10MG/1ML VIAL INJ IV SCH (08:55)
[2020-08-18] MEDS: FAMOTIDINE (10MG/ML) 2ML VL IV SCH (08:55)
[2020-08-18] MEDS: DOPamine 1600MCG/ML D5W 250 ML IV SCH (09:45)
[2020-08-18] MEDS: MULTIPLE VITAMIN TAB PO SCH (10:00)
[2020-08-18] MEDS: ASCORBIC ACID 1,000 MG TAB PO SCH (10:00)
[2020-08-18] MEDS: CHOLECALCIFEROL (VITD3) 2,000 UNIT CAP PO SCH (10:00)
[2020-08-18] MEDS: ZINC SULFATE 220mg CAP or TAB PO SCH (10:00)
[2020-08-18] MEDS: HEPARIN SODIUM (PORCINE) 5000 UNITS/ML 1ML VIAL SC SCH ×2 (10:00→20:14)
[2020-08-18] MEDS ORDERED: cefTRIAXone 1GM/50ML D5W 50 ML IV ONE (10:30)
[2020-08-18] MEDS: NOREPINEPHRINE 8 MG/250ML KIT 250 ML IV SCH (11:00)
[2020-08-18] MEDS: INSULIN LANTUS (GLARGINE) 1 /0.01ml (100units/ml) SC SCH ×2 (11:19→22:22)
[2020-08-18] MEDS: MIDAZOLAM DRIP 50 mg/50mL 50 ML IV SCH (16:36)
[2020-08-18] MEDS: VANCOMYCIN 1GM/250ML 250 ML IV SCH ×2 (18:14)
[2020-08-18] MEDS: TPN PER PHARMACY IV NR ×9 (20:00)
[2020-08-18] MEDS: MUPIROCIN 2% OINT 15gm or 22gm EACHNOSTRI SCH (22:19)
[2020-08-19] VITALS (92 sets, daily range): BP systolic 85–153; BP diastolic 41–85
[2020-08-19] MEDS: InsuLIN REG 1unit/0.01ml Soln (100units/ml) SC SCH ×6 (00:46→20:00)
[2020-08-19] MEDS: DOPamine 1600MCG/ML D5W 250 ML IV SCH (02:00)
[2020-08-19] MEDS: MIDAZOLAM DRIP 50 mg/50mL 50 ML IV SCH ×2 (02:05→19:45)
[2020-08-19 04:31] LABS: Albumin 1.2 g/dL (3.4-5.0); Calcium 8.1 mg/dL (8.5-10.1); Magnesium 2.2 mg/dL (1.6-2.6); Potassium 4.5 mmol/L (3.5-5.1)
[2020-08-19 04:34] LABS: Bilirubin, Total 0.3 mg/dL (0.2-1.0); Phosphorus 2.4 mg/dL (2.5-4.90); Total Protein 5.8 g/dL (6.4-8.2)
[2020-08-19] MEDS: ACCU-CHEK COMFORT CURVE STRIP VI SCH ×6 (04:40→22:10)
[2020-08-19] MEDS: SODIUM CHLOR 0.9% PF (SALINE LOCK) 10ML VIAL/SYR IV SCH ×3 (04:44→22:18)
[2020-08-19] MEDS: BUDESONIDE (INHALATION) 0.5 MG/2 ML NEB NEB SCH ×2 (06:05→22:00)
[2020-08-19] MEDS ORDERED: POTASSIUM PHOSPHATE 22 MEQ in SODIUM CHL 0.9% 100 ML IV ONE (10:00)
[2020-08-19] MEDS: INSULIN LANTUS (GLARGINE) 1 /0.01ml (100units/ml) SC SCH ×2 (10:00→22:00)
[2020-08-19] MEDS: HEPARIN SODIUM (PORCINE) 5000 UNITS/ML 1ML VIAL SC SCH (10:00)
[2020-08-19] MEDS: MULTIPLE VITAMIN TAB PO SCH (10:00)
[2020-08-19] MEDS: ZINC SULFATE 220mg CAP or TAB PO SCH (10:00)
[2020-08-19] MEDS: CHOLECALCIFEROL (VITD3) 2,000 UNIT CAP PO SCH (10:00)
[2020-08-19] MEDS: ASCORBIC ACID 1,000 MG TAB PO SCH (10:00)
[2020-08-19] MEDS: cefTRIAXone 1GM/50ML D5W 50 ML IV SCH (10:28)
[2020-08-19] MEDS: FAMOTIDINE (10MG/ML) 2ML VL IV SCH (10:28)
[2020-08-19] MEDS: MUPIROCIN 2% OINT 15gm or 22gm EACHNOSTRI SCH ×2 (10:28→22:18)
[2020-08-19] MEDS ORDERED: PANTOPRAZOLE 40 MG/10 ML VIAL INJ IV ONE (11:00)
[2020-08-19] MEDS: NOREPINEPHRINE 8 MG/250ML KIT 250 ML IV SCH ×2 (11:00→21:30)
[2020-08-19] MEDS: VANCOMYCIN 1GM/250ML 250 ML IV SCH (14:21)
[2020-08-19] MEDS: TPN PER PHARMACY IV NR ×9 (19:42)
[2020-08-19] MEDS ORDERED: TPN PER PHARMACY IV NR ×7 (20:00)
[2020-08-19] MEDS ORDERED: fentaNYL Drip 2500mCg/250mlNS 250 ML IV ONE (20:43)
[2020-08-19] MEDS: fentaNYL Drip 2500mCg/250mlNS 250 ML IV SCH (20:45)
[2020-08-19] MEDS: PANTOPRAZOLE 40 MG/10 ML VIAL INJ IV SCH (22:18)
[2020-08-20] VITALS (100 sets, daily range): BP systolic 76–180; BP diastolic 35–80
[2020-08-20] MEDS: ALBUTEROL SULF 2.5 MG/0.5ML(0.5%) NEB SOLN NEB PRN ×2 (00:14→06:05)
[2020-08-20] MEDS: InsuLIN REG 1unit/0.01ml Soln (100units/ml) SC SCH ×6 (04:00→20:00)
[2020-08-20] MEDS: ACCU-CHEK COMFORT CURVE STRIP VI SCH ×6 (04:00→20:00)
[2020-08-20] MEDS: VANCOMYCIN 1GM/250ML 250 ML IV SCH (06:00)
[2020-08-20] MEDS: SODIUM CHLOR 0.9% PF (SALINE LOCK) 10ML VIAL/SYR IV SCH ×3 (06:00→22:00)
[2020-08-20] MEDS: BUDESONIDE (INHALATION) 0.5 MG/2 ML NEB NEB SCH ×2 (06:05→22:13)
[2020-08-20 06:14] LABS: Red Blood Cells 3.55 10^6/uL (4.0-5.20)
[2020-08-20 06:18] LABS: Hematocrit 33.9 % (36.0-46.0); Hemoglobin 10.9 g/dL (12.2-16.2); Mean Corpuscular Hemoglobin 30.8 pg (28.0-32.0); Mean Corpuscular Hgb Conc. 32.2 g/dL (32.0-36.0); Mean Corpuscular Volume 95.5 fL (80.0-100.0); Platelet Count (auto) 305 10^3/uL (140-450); Red Cell Distribution Width 17.3 % (11.8-14.3)
[2020-08-20 06:35] LABS: Basophils % (manual) 0 (0.0-2.0); Blast Cells 0; Eosinophils % (manual) 0 (0-7); Promyelocytes % 0; Reactive Lymphocytes 0
[2020-08-20 06:41] LABS: Potassium 3.6 mmol/L (3.5-5.1)
[2020-08-20 06:50] LABS: Albumin 1.2 g/dL (3.4-5.0); BUN/Creatinine Ratio 87.2; Bilirubin, Total 0.4 mg/dL (0.2-1.0); Calcium 8.1 mg/dL (8.5-10.1); Magnesium 1.9 mg/dL (1.6-2.6); Pre Albumin 16.5 mg/dL (20.0-40.0)
[2020-08-20] MEDS: PHENYLEPHRINE IV 250 ML IV SCH ×2 (07:00→11:39)
[2020-08-20] MEDS ORDERED: PHENYLEPHRINE IV 250 ML IV ONE ×2 (07:34→15:20)
[2020-08-20 07:42] LABS: Band Neutrophils % (manual) 10; Lymphocytes % (manual) 2 (10.0-50.0); Metamyelocytes % 3; Monocytes % (manual) 2 (0-12); Myelocytes % 2
[2020-08-20] MEDS ORDERED: AMIODARONE HCL 150 MG in D5W 5% 100 ML IV ONE ×4 (08:30)
[2020-08-20] MEDS: DOPamine 1600MCG/ML D5W 250 ML IV SCH (08:34)
[2020-08-20] MEDS: MUPIROCIN 2% OINT 15gm or 22gm EACHNOSTRI SCH ×2 (08:34→22:00)
[2020-08-20] MEDS: PANTOPRAZOLE 40 MG/10 ML VIAL INJ IV SCH ×2 (08:34→22:00)
[2020-08-20] MEDS: INSULIN LANTUS (GLARGINE) 1 /0.01ml (100units/ml) SC SCH ×2 (08:35→22:00)
[2020-08-20] MEDS: CHOLECALCIFEROL (VITD3) 2,000 UNIT CAP PO SCH (08:35)
[2020-08-20] MEDS: ZINC SULFATE 220mg CAP or TAB PO SCH (08:35)
[2020-08-20] MEDS: MULTIPLE VITAMIN TAB PO SCH (08:35)
[2020-08-20] MEDS: ASCORBIC ACID 1,000 MG TAB PO SCH (08:35)
[2020-08-20] MEDS ORDERED: AMIODARONE 450mg/250ml AE 250 ML IV SCH ×3 (08:45→14:45)
[2020-08-20] MEDS ORDERED: DIGOXIN (250MCG/ML) 2 ML AMPULE IV ONE (09:30)
[2020-08-20] MEDS: cefTRIAXone 1GM/50ML D5W 50 ML IV SCH (10:08)
[2020-08-20] MEDS ORDERED: metroNIDAZOLE 500MG/100ML 100 ML IV ONE (10:15)
[2020-08-20] MEDS: DIGOXIN (250MCG/ML) 2 ML AMPULE IV SCH ×3 (11:17→23:30)
[2020-08-20] MEDS: PHENYLEPHRINE INJ 40 MG in SODIUM CHL 0.9% 250 ML IV SCH (12:15)
[2020-08-20] MEDS: NOREPINEPHRINE BITARTRATE 16 MG in SODIUM CHL 0.9% 250 ML IV SCH (12:15)
[2020-08-20] MEDS ORDERED: ENOXAPARIN SOD 40 MG/0.4 ML SYRINGE SC ONE (13:30)
[2020-08-20] MEDS: VASOPRESSIN 50 UNITS in D5W 5% 247.5 ML IV SCH (13:45)
[2020-08-20] MEDS: AMIODARONE 450mg/250ml AE 250 ML IV SCH (15:30)
[2020-08-20] MEDS: PROPOFOL 100 ML IV SCH (15:36)
[2020-08-20] MEDS ORDERED: TPN PER PHARMACY IV NR ×9 (20:00)
[2020-08-20] MEDS: metroNIDAZOLE 500MG/100ML 100 ML IV SCH (22:00)
[2020-08-21] VITALS (25 sets, daily range): BP systolic 37–157; BP diastolic 19–63
[2020-08-21] MEDS: VANCOMYCIN 1GM/250ML 250 ML IV SCH
[2020-08-21] MEDS: fentaNYL Drip 2500mCg/250mlNS 250 ML IV SCH (01:39)
[2020-08-21] MEDS: VASOPRESSIN 50 UNITS in D5W 5% 247.5 ML IV SCH (03:20)
[2020-08-21] MEDS: NOREPINEPHRINE BITARTRATE 16 MG in SODIUM CHL 0.9% 250 ML IV SCH (03:20)
[2020-08-21] MEDS: ACCU-CHEK COMFORT CURVE STRIP VI SCH ×3 (04:00→08:00)
[2020-08-21] MEDS: InsuLIN REG 1unit/0.01ml Soln (100units/ml) SC SCH ×2 (04:00)
[2020-08-21] MEDS: PHENYLEPHRINE INJ 40 MG in SODIUM CHL 0.9% 250 ML IV SCH (04:55)
[2020-08-21] MEDS: AMIODARONE 450mg/250ml AE 250 ML IV SCH (05:45)
[2020-08-21] MEDS: SODIUM CHLOR 0.9% PF (SALINE LOCK) 10ML VIAL/SYR IV SCH (06:00)
[2020-08-21] MEDS: BUDESONIDE (INHALATION) 0.5 MG/2 ML NEB NEB SCH (06:00)
[2020-08-21] MEDS: metroNIDAZOLE 500MG/100ML 100 ML IV SCH (06:00)
[2020-08-21] MEDS: cefTRIAXone 1GM/50ML D5W 50 ML IV SCH (07:59)
[2020-08-21] MEDS: MULTIPLE VITAMIN TAB PO SCH (08:00)
[2020-08-21] MEDS: ASCORBIC ACID 1,000 MG TAB PO SCH (08:00)
[2020-08-21] MEDS: ZINC SULFATE 220mg CAP or TAB PO SCH (08:00)
[2020-08-21] MEDS: CHOLECALCIFEROL (VITD3) 2,000 UNIT CAP PO SCH (08:00)
[2020-08-21 08:47] LABS: Mean Corpuscular Hemoglobin 30.2 pg (28.0-32.0)
[2020-08-21 08:49] LABS: Hematocrit 34.8 % (36.0-46.0); Hemoglobin 9.8 g/dL (12.2-16.2); Mean Corpuscular Hgb Conc. 28.2 g/dL (32.0-36.0); Mean Corpuscular Volume 107.1 fL (80.0-100.0); Platelet Count (auto) 260 10^3/uL (140-450); Red Blood Cells 3.25 10^6/uL (4.0-5.20); Red Cell Distribution Width 19.2 % (11.8-14.3)
[2020-08-21 09:24] LABS: White Blood Cell 37.5 10^3/uL (4.4-10.8)
[2020-08-21 09:26] LABS: Basophils % (manual) 0 (0.0-2.0); Blast Cells 0; Eosinophils % (manual) 0 (0-7); Promyelocytes % 0; Reactive Lymphocytes 0
[2020-08-21] MEDS ORDERED: ENOXAPARIN SOD 40 MG/0.4 ML SYRINGE SC SCH (10:00)
[2020-08-21] MEDS ORDERED: DIGOXIN (250MCG/ML) 2 ML AMPULE IV SCH (10:00)
[2020-08-21 11:54] LABS: Band Neutrophils % (manual) 14; Lymphocytes % (manual) 4 (10.0-50.0); Metamyelocytes % 7; Monocytes % (manual) 6 (0-12); Myelocytes % 3
== END 2020-08-21 09:29 | DRG 870 ==
LOC: ER 12:31 → EDBD 12:31 → TELE 12:32 → DOU IN ICU 08-14 21:28
PROVIDERS: ADMIT Nurse Practitioner Family; ATTEND Internal Medicine Geriatric Medicine
PROC: 5A09357 Assistance with Respiratory Ventilation, Less than 24 Consecutive Hours, Continuous Positive Airway Pressure (ICD-10-PCS; 2020-08-08)
PROC: 5A1955Z Respiratory Ventilation, Greater than 96 Consecutive Hours (ICD-10-PCS; 2020-08-09)
PROC: 0BH17EZ Insertion of Endotracheal Airway into Trachea, Via Natural or Artificial Opening (ICD-10-PCS; 2020-08-09)
PROC: 02HV33Z Insertion of Infusion Device into Superior Vena Cava, Percutaneous Approach (ICD-10-PCS; principal; 2020-08-16)
PROC: B548ZZA Ultrasonography of Superior Vena Cava, Guidance (ICD-10-PCS; 2020-08-16)
PROC: 03HB33Z Insertion of Infusion Device into Right Radial Artery, Percutaneous Approach (ICD-10-PCS; 2020-08-16)
DX: A41.89 Other specified sepsis (principal); U07.1 COVID-19; J96.01 Acute respiratory failure with hypoxia; J12.82 Pneumonia due to coronavirus disease 2019; E87.2 Acidosis; N17.9 Acute kidney failure, unspecified; N18.4 Chronic kidney disease, stage 4 (severe); N39.0 Urinary tract infection, site not specified; J98.11 Atelectasis; D62 Acute posthemorrhagic anemia; I13.0 Hypertensive heart and chronic kidney disease with heart failure and stage 1 through stage 4 chronic kidney disease, or unspecified chronic kidney disease; Z66 Do not resuscitate; E11.65 Type 2 diabetes mellitus with hyperglycemia; I95.9 Hypotension, unspecified; I50.9 Heart failure, unspecified; E66.9 Obesity, unspecified; Z68.30 Body mass index [BMI] 30.0-30.9, adult; B95.62 Methicillin resistant Staphylococcus aureus infection as the cause of diseases classified elsewhere; E07.9 Disorder of thyroid, unspecified; E11.22 Type 2 diabetes mellitus with diabetic chronic kidney disease; E78.00 Pure hypercholesterolemia, unspecified; E78.5 Hyperlipidemia, unspecified; E87.6 Hypokalemia; I07.1 Rheumatic tricuspid insufficiency; I27.20 Pulmonary hypertension, unspecified; K44.9 Diaphragmatic hernia without obstruction or gangrene; K76.0 Fatty (change of) liver, not elsewhere classified; N28.1 Cyst of kidney, acquired; R65.20 Severe sepsis without septic shock; Z79.4 Long term (current) use of insulin; Z79.899 Other long term (current) drug therapy; B96.4 Proteus (mirabilis) (morganii) as the cause of diseases classified elsewhere
CPT/HCPCS: 36415; 36600; 70450; 71045; 73620; 76705; 80053; 80202; 82040; 82270; 82570; 82728; 82805; 82962; 83036; 83605; 83615; 83735; 83880; 83935; 84100; 84132; 84133; 84300; 84443; 84478; 84484; 85007; 85025; 85027; 85379; 85610; 85730; 86141; 87040; 87070; 87081; 87086; 87088; 87186; 87205; 87426; 93005; 93306; 94002; 94003; 94640; 94660; C9113; G0378; J0330; J0610; J0696; J1100; J1815; J2185; J2250; J2405; J2704; J3480; J3490; J7060; J7131